=== PATIENT | female | born 1995 | race Caucasian/White ===

== ENCOUNTER 2020-09-25 09:40 | Outpatient (REF) | payer OTHER, SELFPAY ==
[2020-09-25 09:57] LABS: COVID-19 Test Negative (Negative); IDNOW Serial# 55D5AD1C
== END 2020-09-25 09:41 | disposition home or self-care (01) ==
LOC: HO.LAB 09:40
PROVIDERS: Visit Provider Internal Medicine
DX: Z20.822 Contact with and (suspected) exposure to COVID-19 (principal)
CPT/HCPCS: 36415; 87635; C9803

== ENCOUNTER 2022-03-05 10:19 | Outpatient (REF) | payer OTHER, SELFPAY ==
[2022-03-05 19:13] LABS: CT PCR NOT DETECTED (Not Detect.); NG PCR NOT DETECTED (Not Detect.)
[2022-03-06 12:45] LABS: BV Int Neg Control Negative (Negative); BV Int Pos Control Positive (Positive)
[2022-03-09 23:27] LABS: HPV mRNA E6/E7 rflx Not Detected (Not Detected)
== END 2022-03-05 10:20 | disposition home or self-care (01) ==
LOC: HO.LAB 10:19
PROVIDERS: Visit Provider Advanced Practice Midwife
DX: Z01.419 Encounter for gynecological examination (general) (routine) without abnormal findings (principal); Z12.31 Encounter for screening mammogram for malignant neoplasm of breast; Z80.3 Family history of malignant neoplasm of breast; Z84.81 Family history of carrier of genetic disease; Z80.41 Family history of malignant neoplasm of ovary; Z11.3 Encounter for screening for infections with a predominantly sexual mode of transmission; Z11.8 Encounter for screening for other infectious and parasitic diseases; Z11.51 Encounter for screening for human papillomavirus (HPV)
CPT/HCPCS: 87480; 87491; 87510; 87591; 87624; 87660; 88142

== ENCOUNTER 2023-04-01 09:29 | Outpatient (AMB) | payer OTHER, SELFPAY ==
--- NOTE | 2023-04-01 09:38 | MHC.OFFWIV ---
Intake Vital Signs 04/01/23 09:40 Height 5 ft 1 in Weight 170 lb 6 oz BMI 32.2 BP 118/70 Blood Pressure Location Lt brachial Position Sitting Pulse 82 Pulse Source Pulse Oximeter Temp 98.7 F Temp Source Oral Pulse Oximetry (%) 99 Oxygen Delivery Method Room Air Intake Visit Reasons: cough, Intake Note: Patient is here with cough since Wednesday, head hurts, took 2 Covid tests that came out negative. She also has muscle aches, no fever. Patient Tobacco Use Status: Never used Tobacco Allergies No Known Allergies Allergy (Verified 04/01/23 09:43) Do you need a note to return to daycare/school/sports/work: No HPI cough, HPI Details 28 y/o female presents with complaints of a cough since Wednesday. She also reports headaches/muscle aches. She reports she had 2 covid home tests that came out negative - last test yesterday. [facility] Family History (Updated 03/05/22 @ 09:45 by BRETT Gannon) Father BRCA1 genetic carrier Paternal Aunt Breast cancer Ovarian cancer Paternal Grandmother Ovarian cancer Social History Patient Tobacco Use Status: Never used Tobacco Female Reproductive History Menstrual Age of Menarche: 11 Review of Systems Const Reports body aches, Denies fatigue and Reports headache(s) ENT Reports headache(s) Card Denies chest pain, Denies lightheadedness, Denies dyspnea and Denies other (Palpitations) Resp Reports cough, Denies dyspnea and Denies wheezing Musc Denies numbness and Denies tingling Neuro Reports headache(s), Denies numbness and Denies tingling Psych Denies anxiety and Denies depression Endo Denies fatigue Aller/Immun Denies wheezing Physical Exam Vital Signs: Last Vital Signs Temp 98.7 F 04/01/23 09:40 Pulse 82 04/01/23 09:40 BP 118/70 04/01/23 09:40 Pulse Ox 99 04/01/23 09:40 Oxygen Delivery Method Room Air 04/01/23 09:40 BMI result Body Mass Index 32.2 Const General: no acute distress and well developed Nutritional Appearance: well nourished Orientation/consciousness: patient oriented x3 HEENT Head: Yes normocephalic and Yes atraumatic Eyes General: appearance normal, both eyes and all related structures Pupils: Equal, round and reactive pupils present EOM: EOMs intact bilaterally Resp Effort & Inspection: normal respiratory effort Auscultation: clear to auscultation bilaterally Cardio Rate: regular rate Rhythm: regular rhythm Heart sounds: S1 normal heart sound present, S2 normal heart sound present, no gallops, no murmurs and no rubs Neuro General: patient oriented x3 and gait normal Cranial nerves: Yes Equal, round and reactive pupils present Psych Affect: normal affect Assessment & Plan Assessment & Plan (1) Viral illness: Code(s): B34.9 - Viral infection, unspecified Plan: Viral illness There is no antibiotic medication for viruses. They must run their course. Most average 5-7 days but 7-10 days is not uncommon and up to 14 days is still possible. A cough is often the last symptom to resolve and this can last for weeks in some cases. Rest Hydrate well - Drink plenty of fluids. Especially water. Tylenol or ibuprofen for muscle aches, headache, fever/discomfort Can use [id number] medications for cough such as Delsym or DayQuil. Prescription cough medicines have been shown to be no better. Sending nasal swab for COVID/flu/RSV to the lab (2) Cough: Code(s): R05.9 - Cough, unspecified Plan: No evidence of bacterial pneumonia on exam and likely 2nd to viral illness as above Can use dextromethorphan cough syrup. Orders: Orders SARS-CoV2/FLU/RSV Today B34.9 - Viral infection, unspecified, Z20.822 - Contact with and (suspected) exposure to COVID-19 Medications: New dextromethorphan HBr 20 mg (15 mL) PO TID PRN 118 mL 1RF cough 5 days B34.9 - Viral infection, unspecified Coding Level of Care Code Est Pt Level 3 (88477) Diagnoses Viral illness B34.9 Cough R05.9
[2023-04-01 09:40] VITALS: BP 118/70; PULSE 82; TEMP 37.1; O2SAT 99; BMI 32.2
== END 2023-04-01 10:14 | disposition home or self-care (01) ==
PROVIDERS: Visit Provider Family Medicine
DX: B34.9 Viral infection, unspecified (principal); R05.9 Cough, unspecified
CPT/HCPCS: 99213

== ENCOUNTER 2023-04-01 10:12 | Outpatient (REF) | payer OTHER, SELFPAY ==
[2023-04-01 16:45] LABS: Influenza A PCR NEGATIVE (Negative); Influenza B PCR NEGATIVE (Negative); Resp Syncy Virus RNA Qual PCR NEGATIVE (Negative); SARS COV2 PCR INHOUSE NEGATIVE (Negative)
== END 2023-04-01 10:13 | disposition home or self-care (01) ==
LOC: HO.LAB 10:12
PROVIDERS: Visit Provider Family Medicine
DX: Z20.828 Contact with and (suspected) exposure to other viral communicable diseases (principal)
CPT/HCPCS: 0241U